=== PATIENT | male | born 1990 | race Caucasian/White ===

== ENCOUNTER 2024-04-30 08:17 | Emergency (ER) | payer OTHER, SELFPAY ==
[2024-04-30] VITALS (12 sets, daily range): BP systolic 109–153; BP diastolic 77–106; PULSE 80–116; RESP 13–20; TEMP 36.8; O2SAT 92–98
--- NOTE | ~2024-04-30 | XR_ITS ---
CHEST RADIOGRAPH, PA AND LATERAL CLINICAL HISTORY: cp . COMPARISON: None available TECHNIQUE: PA and lateral views of the chest. FINDINGS The cardiomediastinal silhouette is unremarkable. The lungs are clear. Visualized osseous structures and soft tissues are unremarkable. IMPRESSION: No focal infiltrate or effusion. Reviewed, dictated and finalized at location A. SPLANT IMMUNOLOGIST
--- NOTE | 2024-04-30 08:19 | ECG_ITS ---
Test Date: 2024-04-30 08:25:04 Measurements Intervals [place] Rate: 120 P: 65 [place]: 179 QRS: 64 QRSD: 98 T: 13 QT: 338 QTc: 479 Interpretive Statements SINUS TACHYCARDIA NONSPECIFIC T-WAVE ABNORMALITY No previous ECG available for comparison Electronically Signed On 04-30-2024 16:31:46 HOUSING MANAGER by Cece Ghotra M.D.
[2024-04-30] MEDS: ASPIRIN 81 MG CHEWABLE TABLET 324 MG PO (08:34)
[2024-04-30 08:36] LABS: Basophils Absolute Auto 0.1 K/mm3 (0.0-0.1); Basophils Percent Auto 0.7 % (0.2-1.2); Eosinophils Absolute Auto 0.1 K/mm3 (0-0.3); Eosinophils Percent Auto 0.8 % (0-4.4); Hemoglobin 17.8 g/dL (14.0-18.0); Immature Granulocyte Absolute 0.05 K/mm3 (0.00-0.031); Immature Granulocyte Percent A 0.7 % (0-0.5); Lymphocytes Absolute Auto 2.12 K/mm3 (0.9-3.2); Lymphocytes Percent Auto 29.3 % (18.3-44.2); Mean Corpuscular HGB Conc 34.9 g/dl (32-36); Mean Corpuscular Volume 88.7 fl (80-100); Mean Platelet Volume 8.7 fl (7.4-10.4); Monocytes Absolute Auto 0.6 K/mm3 (0.1-0.6); Monocytes Percent Auto 7.9 % (2.6-8.5); Neutrophils Absolute Auto 4.4 K/mm3 (1.3-6.7); Neutrophils Percent Auto 60.6 % (45.5-73.1); Platelet Count Result 295 k/mm3 (150-375); Red Blood Count 5.75 M/mm3 (4.6-6.20); Red Cell Distribution Width 12.1 % (11.5-14.5); White Blood Count 7.2 K/mm3 (4.5-10.0)
--- NOTE | 2024-04-30 08:44 | ED.GENADULT ---
HPI - General Adult General Chief complaint: Chest Pain Stated complaint: I had a panic attack Time Seen by Provider: 04/30/24 08:21 History of Present Illness HPI narrative: 34-year-old male presenting to the emergency department for evaluation for a suspected panic attack. Patient reports he had a Brownie and a caffeine pill for breakfast. Patient states when he arrived to work he was feeling uneasy. And told his boss that he needed to go be evaluated by a physician. While the patient was driving to the hospital he had onset of hyperventilation and hand cramping and ultimately called EMS. Patient was advised by EMS and did feel improved so patient ultimately presented emergency department by private transport. Upon arrival to the emergency department patient reports he does feel improved. Patient states he is having some chest wall tightness. Patient states he has been having some intermittent chest pain. Patient denies any cardiac history. Related Data Allergies Allergy/AdvReac Type Severity Reaction Status Date / Time No Known Allergies Allergy Verified 04/30/24 08:17 Review of Systems Review of Systems: All systems reviewed & are unremarkable except as noted in HPI and below Exam Narrative: APPEARANCE: Well appearing, no pain, no distress, well-nourished. HEAD: normocephalic, atraumatic. EYES: PERRLA/EOMI, conjunctivae clear. NOSE: Normal no drainage EARS:TMS clear with good light reflex. THROAT: Pharynx clear, no exudate. NECK: Supple. No adenopathy, no masses. RESPIRATORY: Airway patent, respirations nonlabored. Clear to auscultation bilaterally, no rales, rhonchi, wheezing. CARDIOVASCULAR: Regular rate and rhythm without murmurs rubs or gallops. ABDOMINAL: Soft, nontender, nondistended, normal bowel sounds MUSCULOSKELETAL: Moves all extremities. Strength/ROM intact, No edema, No calf tenderness. NEURO: Alert. Cranial nerves II through XII intact. Grossly intact SKIN: Warm, dry. Normal Color PSYCHIATRIC: Anxious appearing Course Vital Signs Vital signs: Vital Signs Temperature 98.2 F 04/30/24 08:28 Pulse Rate 116 H 04/30/24 08:28 Respiratory Rate 16 04/30/24 08:28 Blood Pressure 153/106 H 04/30/24 08:28 Pulse Oximetry 98 04/30/24 08:28 Temperature 98.2 F 04/30/24 08:28 Pulse Rate 80 04/30/24 12:16 Respiratory Rate 14 04/30/24 12:16 Blood Pressure 109/96 H 04/30/24 12:16 Pulse Oximetry 95 04/30/24 12:16 Oxygen Delivery Room Air 04/30/24 08:36 Medical Decision Making MDM Narrative Medical decision making narrative: 34-year-old male present to the emergency department for evaluation for a suspected anxiety attack with chest tightness. He upon arrival emergency department patient states he does feel improved. Patient is currently AFib with no leukocytosis, hemoglobin is 17.8. INR is 1.0. No significant abnormalities on the patient's CMP patient had negative serial troponins. Chest x-ray shows no acute cardiopulmonary abnormality. Differential Diagnosis Differential Diagnosis: COVID, RSV, influenza, tachycardia, anxiety, ACS, pneumonia, pneumothorax Vital Signs Vital Signs: Vital Signs Temperature 98.2 F 04/30/24 08:28 Pulse Rate 116 H 04/30/24 08:28 Respiratory Rate 16 04/30/24 08:28 Blood Pressure 153/106 H 04/30/24 08:28 Pulse Oximetry 98 04/30/24 08:28 Temperature 98.2 F 04/30/24 08:28 Pulse Rate 80 04/30/24 12:16 Respiratory Rate 14 04/30/24 12:16 Blood Pressure 109/96 H 04/30/24 12:16 Pulse Oximetry 95 04/30/24 12:16 Oxygen Delivery Room Air 04/30/24 08:36 Lab Data Lab results reviewed: Yes I reviewed the patient's lab results. 04/30/24 08:29 04/30/24 08:29 Labs: Lab Results 04/30/24 04/30/24 Range/Units 08:29 11:26 WBC 7.2 (4.5-10.0) K/mm3 RBC 5.75 (4.6-6.20) M/mm3 Hgb 17.8 (14.0-18.0) g/dL Hct 51.0 (42.0-52.0) % MCV 88.7 (80-100) fl MCH 31.0 (26-34) pg MCHC 34.9 (32-36) g/dl RDW 12.1 (11.5-14.5) % Plt Count 295 (150-375) k/mm3 MPV 8.7 (7.4-10.4) fl Immature Gran % (Auto) 0.7 H (0-0.5) % Neut % (Auto) 60.6 (45.5-73.1) % Lymph % (Auto) 29.3 (18.3-44.2) % Leslie % (Auto) 7.9 (2.6-8.5) % Eos % (Auto) 0.8 (0-4.4) % Baso % (Auto) 0.7 (0.2-1.2) % Lymph # (Auto) 2.12 (0.9-3.2) K/mm3 Leslie # (Auto) 0.6 (0.1-0.6) K/mm3 Eos # (Auto) 0.1 (0-0.3) K/mm3 Baso # (Auto) 0.1 (0.0-0.1) K/mm3 Abs Immat Gran (auto) 0.05 H (0.00-0.031) K/mm3 Absolute Neuts (auto) 4.4 (1.3-6.7) K/mm3 Absolute Nucleated RBC 0.000 (0.0-0.012) K/mm3 Nucleated RBC % 0.0 (0.0-0.2) % PT 13.0 (11.1-14.7) Seconds INR 1.0 APTT 24.8 (22.3-36.8) Seconds Sodium 140 (137-145) mmol/L Potassium 3.6 (3.4-5.0) mmol/L Chloride 101 (98-107) mmol/L Carbon Dioxide 23 (22-30) mmol/L Anion Gap 16 H (4-12) mmol/L BUN 10 (9-20) mg/dL Creatinine 0.80 (0.7-1.3) mg/dL Estim Creat Clear Calc 155 ml/min Estimated GFR > 60 (59 - ) Glucose 121 H (65-110) mg/dL Calcium 10.1 (8.4-10.2) mg/dL Total Bilirubin 0.9 (0.2-1.3) mg/dL AST 39 (17-59) U/L ALT 58 H (6-50) U/L Alkaline Phosphatase 60 (38-126) U/L Troponin I < 0.012 < 0.012 (0.000-0.034) ng/mL Total Protein 8.0 (6.3-8.2) g/dL Albumin 5.1 (3.5-5.1) g/dL Lipase 95 (23-300) U/L Imaging Data Radiologist's impression: Impressions Chest X-Ray 04/30/24 09:06 IMPRESSION: No focal infiltrate or effusion. Discharge Plan Discharge Clinical Impression: Acute anxiety, Atypical chest pain Patient Disposition: Home, Self-Care Condition: Stable Instructions: Antibiotic Form, Chest Pain (ED), Anxiety (ED) Additional Instructions: Avoid caffeine pills. Drink plenty of fluids. Have a well-balanced breakfast. Have close follow-up with your primary care physician for additional outpatient cardiac testing. If you have any worsening symptoms then please call or return to the emergency department. Patient Language: Macedonian Follow-up/Referrals: PHYSICIAN,PSYCHOLOGICAL SCIENCE PROFESSOR [Non-Staff] - Quality HEART score for chest pain patients History: slightly suspicious ECG: normal Age: < or = to 45 years Risk factors: no risk factors known Troponin: < or = to 1x normal limit Heart score: 0
[2024-04-30 08:52] LABS: Alanine Aminotransferase 58 U/L (6-50); Albumin Level 5.1 g/dL (3.5-5.1); Alkaline Phosphatase 60 U/L (38-126); Anion Gap 16 mmol/L (4-12); Aspartate Amino Transferase 39 U/L (17-59); Bilirubin,Total 0.9 mg/dL (0.2-1.3); Blood Urea Nitrogen 10 mg/dL (9-20); Calcium 10.1 mg/dL (8.4-10.2); Carbon Dioxide 23 mmol/L (22-30); Chloride 101 mmol/L (98-107); Estimated CRCL calculation 155 ml/min; Estimated Glomerular Filt Rate > 60; Glucose 121 mg/dL (65-110); Lipase 95 U/L (23-300); Potassium 3.6 mmol/L (3.4-5.0); Sodium 140 mmol/L (137-145)
[2024-04-30 09:03] LABS: Partial Thromboplastin Time 24.8 Seconds (22.3-36.8)
[2024-04-30 09:04] LABS: Troponin I < 0.012 ng/mL (0.000-0.034)
[2024-04-30] MEDS: LORazepam INJ (*CRX) 2 MG/ML VIAL 0.5 MG IV PUSH (09:07)
[2024-04-30] MEDS: SODIUM CHLORIDE 0.9% IV 1,000 ML 999 ML IV CONT (09:07)
--- OUTSIDE RECORDS SUMMARY | 2024-04-30 09:16 | XMS_ITS | Clinical Summary ---
Author Organization [facility] Address [address] [place] [address] Care Team Providers Care Washateria Attendant Name Role Phone No, Physician Primary Care Provider [phone] Allergies No known active allergies Medications meclizine (ANTIVERT) 25 mg tabletIndicatio ns:Vertigo Take 1 tablet (25 mg total) by mouth 3 (three) times a day as needed for dizziness for up to 10 days 30 tablet Active Social History Tobacco Use Types Packs/Day Years Used Date Smoking Tobacco: Never Assessed Personal Safety Answer Date Recorded Getting School Help Needed Not on file 04/26 Sex and Gender Information Value Date Recorded Sex Assigned at Not on file 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 Gender Identity Not on file Sexual Orientation Not on file Last Filed Vital Signs Vital Sign Reading Time Taken Comments Blood Pressure 145/90 02/05/2022 1:50 PM INDUSTRIAL MACHINE OPERATOR Pulse 86 02/05/2022 1:50 PM INDUSTRIAL MACHINE OPERATOR Temperature 36.8 C (98.2 F) 02/05/2022 11:25 AM INDUSTRIAL MACHINE OPERATOR Respiratory Rate 18 02/05/2022 1:50 PM INDUSTRIAL MACHINE OPERATOR Oxygen Saturation 98% 02/05/2022 1:50 PM INDUSTRIAL MACHINE OPERATOR Inhaled Oxygen Concentration - - Weight 122.4 kg (269 lb 13.5 oz) 2021 11:25 AM INDUSTRIAL MACHINE OPERATOR Height 180.3 cm (5' 11 ) 02/05/2022 11: 25 AM INDUSTRIAL MACHINE OPERATOR Body Mass Index 37.64 02/05/2022 11:25 AM INDUSTRIAL MACHINE OPERATOR Plan of Treatment Health Maintenance Due Date Last Done Comments Depression Screening 1992 Hepatitis C Screening 1992 DTaP/Tdap/Td Vaccine (1 - Tdap) 2003 Varicella Vaccines (1 of 2 - 13+ 2-dose series) 2005 Hepatitis B Screening 2010 Regular Well Visit/Exam 18-64 2010 Covid-19 Vaccine (2023-2 5 season) 2023 10/27/2020, 10/06/2020 Influenza Vaccine (#1) 2023 HPV Vaccines Aged Out No longer eligi ble based on patient's age to complete this topic Pneumococcal vaccine <65 Aged Out No longer eligible based on patient's age to complete this topic Care Teams Washateria Attendant Relationship Specialty Start Date End Date No, Physician PCP - General 02/05/22
--- OUTSIDE RECORDS SUMMARY | 2024-04-30 09:16 | XMS_ITS | Referral Summary ---
Author Organization [facility] Address [address] [place] [address] Care Team Providers Care Personnel Security Specialist Name Role Phone No, Physician Primary Care Provider [phone] Allergies No known active allergies Medications meclizine (ANTIVERT) 25 mg tabletIndicatio ns:Vertigo Take 1 tablet (25 mg total) by mouth 3 (three) times a day as needed for dizziness for up to 10 days 30 tablet 2 Active Social History Tobacco Use Types Packs/Day Years Used Date Smoking Tobacco: Never Assessed Personal Safety Answer Date Recorded Getting School Help Needed Not on file 04/26 Sex and Gender Information Value Date Recorded Sex Assigned at Not on file Legal 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 Gender Identity Not on file Sexual Orientation Not on file Last Filed Vital Signs Vital Sign Reading Time Taken Comments Blood Pressure 145/90 02/05/2022 1:50 PM CERTIFIED PERFORMANCE TECHNOLOGIST Pulse 86 02/05/2022 1:50 PM CERTIFIED PERFORMANCE TECHNOLOGIST Temperature 36.8 C (98.2 F) 02/05/2022 11:25 AM CERTIFIED PERFORMANCE TECHNOLOGIST Respiratory Rate 18 02/05/2022 1:50 PM CERTIFIED PERFORMANCE TECHNOLOGIST Oxygen Saturation 98% 02/05/2022 1:50 PM CERTIFIED PERFORMANCE TECHNOLOGIST Inhaled Oxygen Concentration - - Weight 122.4 kg (269 lb 13.5 oz) 2021 11:25 AM CERTIFIED PERFORMANCE TECHNOLOGIST Height 180.3 cm (5' 11 ) 02/05/2022 11: 25 AM CERTIFIED PERFORMANCE TECHNOLOGIST Body Mass Index 37.64 02/05/2022 11:25 AM CERTIFIED PERFORMANCE TECHNOLOGIST Plan of Treatment Not on file Care Teams Personnel Security Specialist Relationship Specialty Start Date End Date No, Physician PCP - General 02/05/22
--- NOTE | 2024-04-30 11:23 | ECG_ITS ---
Test Date: 2024-04-30 11:28:44 Measurements Intervals [place] Rate: 77 P: 38 SD: 160 QRS: 31 QRSD: 104 T: 43 QT: 356 QTc: 405 Interpretive Statements SINUS RHYTHM NORMAL ELECTROCARDIOGRAM Compared to ECG 04/30/2024 08:25:04 HEART RATE IS REDUCED Electronically Signed On 05-01-2024 15:17:59 WATERWORKS PUMP STATION OPERATOR by Huey Mix M.D.
[2024-04-30 12:02] LABS: Troponin I < 0.012 ng/mL (0.000-0.034)
== END 2024-04-30 12:49 | disposition home or self-care (01) ==
PROVIDERS: Emergency Provider Emergency Medicine
DX: F41.9 Anxiety disorder, unspecified (principal); R07.89 Other chest pain
CPT/HCPCS: 36415; 71046; 80053; 83690; 84484; 85025; 85610; 85730; 93005; 96361; 96374; 99284; A9270; J2060; J7030